=== PATIENT | female | born 1950 | race Caucasian/White ===

== ENCOUNTER 2024-03-15 18:33 | Emergency (ER) | payer MEDICARE ==
[2024-03-15] MEDS: Acetaminophen 500 MG Tab PO ONE (19:04)
[2024-03-15 19:09] LABS: BASOPHILS ABSOLUTE AUTO 0.01 K/uL (0.02-0.10); BASOPHILS PERCENT AUTO 0.1 % (0.0-0.5); HEMATOCRIT 30.1 % (37.0-47.0); HEMOGLOBIN 9.6 g/dL (11.5-16.5); LYMPHOCYTES ABSOLUTE AUTO 0.24 K/uL (1.50-4.00); LYMPHOCYTES PERCENT AUTO 1.8 % (20.0-40.0); MEAN CORPUSCULAR HEMOGLOBIN 27.7 pg (27.0-32.0); MEAN CORPUSCULAR HGB CONC 31.9 g/dL (31.0-35.0); MEAN CORPUSCULAR VOLUME 87 fL (76-96); MEAN PLATELET VOLUME 10.3 fL (6.0-10.0); MONOCYTES ABSOLUTE AUTO 0.32 K/uL (0.20-0.80); MONOCYTES PERCENT AUTO 2.5 % (3.0-10.0); NEUTROPHILS ABSOLUTE AUTO 12.46 K/uL (2.00-7.50); NEUTROPHILS PERCENT AUTO 95.6 % (45.0-70.0); PLATELET COUNT,PLT 257 K/uL (150-500); RED BLOOD CELL COUNT 3.47 M/uL (3.80-5.80); RED CELL DISTRIBUTION WIDTH 14.3 % (11.0-16.0)
[2024-03-15 19:10] LABS: APPEARANCE,URINE TURBID (CLEAR); BILIRUBIN,URINE NEGATIVE (NEGATIVE); COLOR,URINE YELLOW; GLUCOSE,URINE NEGATIVE (NEGATIVE); KETONES,URINE NEGATIVE (NEGATIVE); LEUKOCYTE ESTERASE,URINE LARGE (NEGATIVE); NITRITE,URINE NEGATIVE (NEGATIVE); OCCULT BLOOD,URINE MODERATE (NEGATIVE); PH,URINE 5.5 (5.0-8.0); PROTEIN,URINE >=300 mg/dL (NEGATIVE); UROBILINOGEN,URINE 0.2 E.U./dL (0.2-1.0)
[2024-03-15] MEDS: Lactated Ringers 1,000 ML IV ONE (19:20)
[2024-03-15 19:21] LABS: BACTERIA,URINE MANY /HPF; RBC,URINE 0-5 /HPF; SQUAMOUS EPITHELIAL CELLS,UR FEW /HPF; WBC,URINE >100 /HPF
[2024-03-15 19:29] LABS: ALBUMIN 2.1 g/dL (3.4-5.0); ANION GAP 22.2 mmol/L (5.0-15.0); BILIRUBIN TOTAL 0.5 mg/dL (0.0-1.0); BUN/CREATININE RATIO 10.8 (6-25); CALCIUM 8.3 mg/dL (8.5-10.1); CARBON DIOXIDE,CO2 17.7 mmol/L (21.0-32.0); CREATININE 1.94 mg/dL (0.55-1.02); EST CRCL DRUG DOSING (CG) 23.93 mL/min; MAGNESIUM 1.2 mg/dL (1.8-2.4); PHOSPHORUS 2.2 mg/dL (2.5-4.9); POTASSIUM,K 3.9 mmol/L (3.5-5.1); PROTEIN TOTAL,TP 6.8 g/dL (6.4-8.2)
[2024-03-15 19:31] LABS: A/G RATIO 0.5 (0.8-2.0)
[2024-03-15 19:32] LABS: TROPONIN I HIGH SENSITIVITY 13784.7 pg/ml (<=60.4)
[2024-03-15 19:56] LABS: INFLUENZA A NAA NEGATIVE (NEGATIVE); INFLUENZA B NAA NEGATIVE (NEGATIVE); RESPIRATORY SYNCYTIAL VIR NAA NEGATIVE (NEGATIVE)
[2024-03-15 19:57] LABS: CORONAVIRUS COVID-19 NAA NEGATIVE (NEGATIVE)
[2024-03-15] MEDS: Norepinephrine Bit/0.9 % NaCl 4 MG in Premix Bag 1 BAG IV SCH (20:10)
[2024-03-15] MEDS: Meropenem 1 GM in Sodium Chloride 0.9% 100 ML IV SCH (20:25)
[2024-03-15 20:55] LABS: LACTIC ACID 7.3 mmol/L (0.4-2.0)
[2024-03-15 21:15] LABS: BASE EXCESS ARTERIAL -9.8 (-2-2); BICARBONATE,ARTERIAL 14.6 mmol/L (22-26); O2 SATURATION ARTERIAL 93.7 % (95-98); PCO2 ARTERIAL 22.5 mmHg (35-45); PO2 ARTERIAL 66.1 mmHg (80-105)
[2024-03-17] MEDS: Acetaminophen 500 MG Tab ONE (11:38)
[2024-03-17] MEDS: Ondansetron 4 MG/2 ML SDV IVPUSH SCH (11:38)
== END 2024-03-15 21:26 ==
LOC: LB.ED 18:33
DX: A41.9 Sepsis, unspecified organism (principal); R65.21 Severe sepsis with septic shock; N39.0 Urinary tract infection, site not specified; I10 Essential (primary) hypertension; R79.89 Other specified abnormal findings of blood chemistry; Z79.899 Other long term (current) drug therapy
CPT/HCPCS: 0241U; 36415; 36600; 71045; 74176; 80053; 81001; 82803; 83605; 83735; 83880; 84100; 84484; 85025; 87040; 87086; 93005; 96361; 96365; 96366; 96368; 99285; A9270; J2185; J3370; J3490; J7050; J7120; 93010; C1758

== ENCOUNTER 2024-03-29 14:27 | Inpatient (IN) | payer MEDICARE ==
[2024-03-29] MEDS ORDERED: guaiFENesin 100 MG/5 ML Soln 10 ML UD Cup PO PRN (19:36)
[2024-03-29] MEDS ORDERED: Melatonin 3 MG Tab PO PRN (20:10)
[2024-03-29] MEDS: Zinc Oxide 20% Oint 56.7 GM Tube TOP PRN (20:50)
[2024-03-29] MEDS: Melatonin 3 MG Tab PO PRN (20:51)
[2024-03-29] MEDS: atorvaSTATin 40 MG Tab PO SCH (20:52)
[2024-03-29] MEDS: Acetaminophen 325 MG Tab PO PRN (20:52)
[2024-03-29] MEDS: Clopidogrel 75 MG Tab PO SCH (20:53)
[2024-03-29] MEDS: Tuberculin, PPD 5 Units/0.1 ML 1 ML MDV IDERM ONE (21:09)
[2024-03-30] MEDS: Aspirin 81 MG Tab.Chew PO SCH (09:07)
[2024-03-30] MEDS: Levofloxacin 500 MG Tab PO SCH (09:07)
[2024-03-30] MEDS: Ticagrelor 90 MG Tab PO SCH (20:37)
[2024-03-31] MEDS: Sennosides/Docusate Sodium 50-8.6 MG Tab PO SCH (12:21)
[2024-03-31] MEDS: traMADol 50 MG Tab PO PRN (15:03)
[2024-04-01] MEDS: Metoprolol Succinate 25 MG Tab.ER PO ONE (11:20)
[2024-04-03] MEDS: Bisacodyl 10 MG Supp RECTAL ONE (16:05)
[2024-04-03] MEDS: Polyethylene Glycol 3350 Powder 17 GM Packet PO SCH (16:05)
[2024-04-14] MEDS: Carboxymethylcellulose Sodium 1% Ophth Gel 0.4 ML UD Box of 30 EYEBOTH PRN (23:48)
[2024-04-16 08:53] VITALS: BP 126/82; PULSE 116
== END 2024-04-16 10:32 | disposition home or self-care (01) | DRG 947 ==
LOC: LB.MS 14:40 → UNDOADMIN 14:54 → LB.MS 14:54
PROVIDERS: ADMIT Surgery; ATTEND Surgery
DX: R53.81 Other malaise (principal); A41.9 Sepsis, unspecified organism; R65.21 Severe sepsis with septic shock; I21.4 Non-ST elevation (NSTEMI) myocardial infarction; N17.9 Acute kidney failure, unspecified; I10 Essential (primary) hypertension; Z79.82 Long term (current) use of aspirin; Z79.899 Other long term (current) drug therapy
CPT/HCPCS: 36415; 85018; 86580; 93005; 97110-GP; 97116-GP; 97140-GP; 97161-GP; 97165-GO; 97530-GO; 97530-GP; 97535-GO; 99305; 99308; 99315; A9270-GY

== ENCOUNTER 2024-04-17 22:29 | Emergency (ER) | payer MEDICARE ==
[2024-04-17] MEDS ORDERED: Sodium Chloride 0.9% 10 ML Syringe FLUSH PRN (22:59)
[2024-04-17] MEDS: Sodium Chloride 0.9% 1,000 ML IV SCH (23:11)
[2024-04-17 23:28] LABS: HEMATOCRIT 25.7 % (37.0-47.0); WHITE BLOOD CELL COUNT,WBC 7.7 K/uL (4.0-11.0)
[2024-04-17 23:29] LABS: MEAN CORPUSCULAR HEMOGLOBIN 26.7 pg (27.0-32.0); MEAN CORPUSCULAR HGB CONC 31.1 g/dL (31.0-35.0); RED CELL DISTRIBUTION WIDTH 15.2 % (11.0-16.0)
[2024-04-17 23:41] LABS: A/G RATIO 0.4 (0.8-2.0); ALBUMIN 2.2 g/dL (3.4-5.0); BILIRUBIN TOTAL 0.2 mg/dL (0.0-1.0); BUN/CREATININE RATIO 13.4 (6-25); CALCIUM 8.9 mg/dL (8.5-10.1); CARBON DIOXIDE,CO2 25.8 mmol/L (21.0-32.0); CREATININE 1.19 mg/dL (0.55-1.02); EST CRCL DRUG DOSING (CG) 38.45 mL/min; POTASSIUM,K 3.8 mmol/L (3.5-5.1); PROTEIN TOTAL,TP 7.8 g/dL (6.4-8.2)
[2024-04-17 23:54] LABS: INR 1.1 (1.0-3.5)
[2024-04-17 23:57] LABS: PROTHROMBIN TIME 11.1 sec (9.0-11.5)
[2024-04-18 08:45] LABS: HEMATOCRIT 24.9 % (37.0-47.0); MEAN CORPUSCULAR HEMOGLOBIN 28.3 pg (27.0-32.0); MEAN CORPUSCULAR HGB CONC 32.1 g/dL (31.0-35.0); MEAN PLATELET VOLUME 8.6 fL (6.0-10.0); RED BLOOD CELL COUNT 2.83 M/uL (3.80-5.80); RED CELL DISTRIBUTION WIDTH 15.3 % (11.0-16.0); WHITE BLOOD CELL COUNT,WBC 8.5 K/uL (4.0-11.0)
[2024-04-18 14:02] VITALS: BP 114/60; PULSE 111
== END 2024-04-18 16:31 | disposition home or self-care (01) ==
LOC: LB.ED 22:29
DX: C54.1 Malignant neoplasm of endometrium (principal); N93.9 Abnormal uterine and vaginal bleeding, unspecified; D50.0 Iron deficiency anemia secondary to blood loss (chronic); I10 Essential (primary) hypertension; Z79.899 Other long term (current) drug therapy; Z79.82 Long term (current) use of aspirin
CPT/HCPCS: 36415; 36430; 80053; 83735; 85027; 85610; 86850; 86900; 86901; 86920; 86922; 96360; 96361; 99284; 99284-25; A0425; A0429; J7030; P9016